=== PATIENT | female | born 1970 | race Caucasian/White ===

== ENCOUNTER 2018-06-21 00:33 | Emergency (ER) | payer SELFPAY ==
--- NOTE | 2018-06-21 01:30 | NUR ---
patient was called several times to be traiged. Patient was not present. Was NOT Seen by ERMD or Triaged
== END 2018-06-21 01:54 | disposition left against medical advice (07) ==
LOC: ER 00:40
DX: Z53.21 Procedure and treatment not carried out due to patient leaving prior to being seen by health care provider (principal)